=== PATIENT | male | born 1990 | race Caucasian/White ===

== ENCOUNTER → 2022-12-21 12:24 | Outpatient (CLI) | payer OTHER, MEDICAID, SELFPAY ==
--- NOTE | 2022-12-21 12:27 | DI.MRI.S_ITS ---
PROCEDURE: MR KNEE RT WO CON INDICATIONS: chronic right knee pain, effusion, locking and popping. TECHNIQUE: Noncontrast sagittal PD fast spin echo and T2 fast spin echo with fat saturation, sagittal 3-D FLASH with fat saturation; coronal T1 spin echo and PD fast spin echo with fat saturation, and axial PD fast spin echo with fat saturation through the knee. COMPARISON: None. FINDINGS: Image quality: Excellent. Menisci: The medial meniscus is intact. Complex tear involving anterior horn and body of lateral meniscus is seen extending to both superior and inferior articulating surfaces. Lobulated and septated cystic structure anterior to the lateral meniscus is seen measures 1.4 x 1.2 cm in size likely represent a Zenia meniscal cyst. The meniscal root ligaments appear intact. Cruciate ligaments: The anterior cruciate ligament is mildly thickened with subtle intrasubstance T2 hyperintense signal. The posterior cruciate ligament is intact. Medial structures: The medial collateral ligament appears intact. The posterior oblique ligament, semimembranosus tendon insertions, oblique popliteal ligament, and meniscocapsular junction appear intact. Visualized portions of the pes anserinus tendons appear normal. No abnormal bursal fluid. Lateral structures: The lateral collateral ligament is mildly thickened. The long and short heads of the biceps femoris tendon appear intact. The popliteus tendon appears normal; the popliteofibular ligament appears intact. Iliotibial band appears normal. Anterior structures: The quadriceps and patellar tendons appear intact. Patellar alignment is normal. No femoral trochlear dysplasia or ventral trochlear prominence. No edema in the infrapatellar fat pad. Bones and cartilage: No bone marrow contusions or fractures. The cartilage of the medial and lateral femorotibial compartments, as well as the patellofemoral compartment, appears normal in thickness. Joint space: There is small knee joint fluid. No White's cyst. Normal appearing synovial plicae are incidentally noted. IMPRESSION: 1. Complex tear involving anterior horn and body of lateral meniscus extending to both superior and inferior articulating surfaces with adjacent Zenia meniscal cyst as above. No evidence of focal medial meniscal tear. 2. Low-grade anterior cruciate ligament sprain. No ACL rupture. The PCL is intact. 3. Mild LCL sprain. 4. No marrow edema. No fracture or dislocation. Articulating cartilages are intact. Small joint effusion. Dictated by: Pranay Alfredo M.D. on 12/22/2022 at 10:14 Approved by: Pranay Alfredo M.D. on 12/22/2022 at 10:56
== END ==
PROVIDERS: PCP Family Medicine; Referring Provider Family Medicine; Visit Provider Family Medicine
DX: S83.271A Complex tear of lateral meniscus, current injury, right knee, initial encounter (principal); S83.511A Sprain of anterior cruciate ligament of right knee, initial encounter; S83.421A Sprain of lateral collateral ligament of right knee, initial encounter; M25.561 Pain in right knee; M25.461 Effusion, right knee
CPT/HCPCS: 73721